=== PATIENT | male | born 1950 | race Caucasian/White ===

== ENCOUNTER 2018-10-27 10:12 | Inpatient (IN) | payer MEDICARE, BC, OTHER ==
[2018-10-27] MEDS ORDERED: BENZONATATE 100 MG CAPSULE PO ONE (10:29)
[2018-10-27] MEDS ORDERED: IPRATROPIUM/ALBUTEROL 0.5-2.5 MG/3 ML AMPUL NEB ONE (10:29)
--- NOTE | 2018-10-27 10:30 | ER Document Report ---
ED Medical Screen (RME) - General Chief Complaint: Breathing Difficulty Stated Complaint: COUGH, DIFFICULTY BREATHING Time Seen by Provider: 10/27/18 10:28 TRAVEL OUTSIDE OF THE [place] IN LAST 30 DAYS: No - HPI Patient complains to provider of: Shortness of breath with cough and chest tightness Notes: 10/27/18 10:29 Patient is a 68-year-old male presenting to the emergency room today complaining of shortness of breath with cough productive of a small amount of whitish colored phlegm, difficulty breathing and chest tightness, symptoms have been going on for the past few days and have occurred twice a year for the past 3 years RAPID MEDICAL EVALUATION DISCLOSURE I have seen this patient as part of a Rapid Medical Evaluation and, if applicable, placed any initially appropriate orders. The patient will be seen and fully evaluated, including a full history and physical exam, by a provider (in Main ED or Fast Track) when a room becomes available. - Related Data Allergies/Adverse Reactions: benzoin Allergy (Verified 10/27/18 10:18) Physical Exam - Vital signs Vitals: Temp Pulse Resp BP Pulse Ox 98.1 F 125 H 24 H 148/97 H 94 10/27/18 10:20 10/27/18 10:20 10/27/18 10:20 10/27/18 10:20 10/27/18 10:20 Course - Vital Signs Vital signs: Temp Pulse Resp BP Pulse Ox 98.1 F 125 H 24 H 148/97 H 94 10/27/18 10:20 10/27/18 10:20 10/27/18 10:20 10/27/18 10:20 10/27/18 10:20
--- NOTE | 2018-10-27 11:17 | RADIOLOGY REPORT (SQ) ---
EXAM DESCRIPTION: CHEST 2 VIEWS COMPLETED DATE/TIME: 10/27/2018 11:05 am REASON FOR STUDY: cough COMPARISON: None. EXAM PARAMETERS: NUMBER OF VIEWS: two views TECHNIQUE: Digital Frontal and Lateral radiographic views of the chest acquired. RADIATION DOSE: NA LIMITATIONS: none FINDINGS: LUNGS AND PLEURA: No opacities, masses or pneumothorax. No pleural effusion. MEDIASTINUM AND HILAR STRUCTURES: No masses or contour abnormalities. HEART AND VASCULAR STRUCTURES: Heart normal size. No evidence for failure. BONES: No acute findings. HARDWARE: None in the chest. OTHER: No other significant finding. IMPRESSION: NO ACUTE RADIOGRAPHIC FINDING IN THE CHEST. TECHNICAL DOCUMENTATION: JOB ID: [id number] [employer]- All Rights Reserved Reading location - IP/workstation name: [email or web address]
[2018-10-27] MEDS ORDERED: HYDROCODONE/ACETAMINOPHEN 5-325 MG TABLET PO ONE (11:57)
[2018-10-27] MEDS ORDERED: LIDOCAINE 1% INJ-PF (10 MG/ML) 30 ML SDV NEB ONE (11:57)
[2018-10-27 12:28] LABS: ABSOLUTE EOSINOPHILS # (AUTO) 0.1 10^3/uL (0.0-0.6); ABSOLUTE LYMPHOCYTES (AUTO) 1.1 10^3/uL (0.5-4.7); ABSOLUTE MONOCYTES (AUTO) 0.5 10^3/uL (0.1-1.4); ABSOLUTE NEUT (AUTO) 4.7 10^3/uL (1.7-8.2); BASOPHILS % (AUTO) 0.4 % (0-2); HEMATOCRIT 47.8 % (37.9-51.0); HEMOGLOBIN 16.5 g/dL (13.5-17.0); LYMPHOCYTES % (AUTO) 17.6 % (13-45); MEAN CORPUSCULAR HEMOGLOBIN 31.3 pg (27.0-33.4); MEAN CORPUSCULAR HGB CONC 34.6 g/dL (32.0-36.0); MEAN CORPUSCULAR VOLUME 90 fl (80-97); MONOCYTES % (AUTO) 8.2 % (3-13); PLATELET COUNT 223 10^3/uL (150-450); RED BLOOD COUNT 5.29 10^6/uL (4.35-5.55); SEGMENTED NEUTROPHILS % (AUTO) 72.8 % (42-78); TOTAL CELLS COUNTED % (AUTO) 100 %; WHITE BLOOD COUNT 6.5 10^3/uL (4.0-10.5)
[2018-10-27 12:47] LABS: ALANINE AMINOTRANSFERASE 25 U/L (21-72); ALBUMIN 4.3 g/dL (3.5-5.0); ALKALINE PHOSPHATASE 95 U/L (38-126); ANION GAP 9 (5-19); ASPARTATE AMINO TRANSFERASE 21 U/L (17-59); BILIRUBIN,DIRECT 0.3 mg/dL (0.0-0.4); BILIRUBIN,TOTAL 0.7 mg/dL (0.2-1.3); BLOOD UREA NITROGEN 18 mg/dL (7-20); CALCIUM 9.3 mg/dL (8.4-10.2); CARBON DIOXIDE 28 mmol/L (22-30); CHLORIDE 101 mmol/L (98-107); GLUCOSE 97 mg/dL (75-110); SODIUM 137.8 mmol/L (137-145)
[2018-10-27 12:57] LABS: NT PRO BNP 87 pg/mL (5-900)
[2018-10-27 12:58] LABS: TROPONIN I < 0.012 ng/mL
[2018-10-27] MEDS ORDERED: ALBUTEROL SULFATE 0.083% NEB 2.5 MG/3 ML AMPUL NEB ONE (13:46)
--- NOTE | 2018-10-27 15:51 | ER Document Report ---
Entered by LAUREL RODRIGUEZ SCRIBE 10/27/18 1156 Acting as scribe for:JAIME ANDRADE MD ED Respiratory Problem - General Chief Complaint: Breathing Difficulty Stated Complaint: COUGH, DIFFICULTY BREATHING Time Seen by Provider: 10/27/18 10:28 Primary Care Provider: SUSAN MEJIA FNP-C [Primary Care Provider] - Follow up as needed Mode of Arrival: Ambulatory Information source: Patient Notes: 68-year-old male who is on no home medications presents to the emergency department today with complaints of a cough with associated shortness of breath. Patient states he has had a cough for x2-3 weeks. Patient states for the first x2 weeks or so the cough seemed to "be coming from his throat" however over the last x5-6 days the cough seemed to have "settled in his chest". Patient states he went to an urgent care and he was prescribed an albuterol inhaler, prednisone, and Tessalon Perles. Patient states he has had minimal to no relief with these medications. Patient states he has never smoked and has no pulmonary history to his knowledge. Patient denies fevers. The patient was put on prednisone 20 mg twice daily on 10/24/2018. He states he cannot take higher doses because it tends to cause a steroid psychosis and jitteriness. TRAVEL OUTSIDE OF THE [place] IN LAST 30 DAYS: No - Related Data Allergies/Adverse Reactions: benzoin Allergy (Verified 10/27/18 10:18) Past Medical History - General Information source: Patient - Social History Smoking Status: Never Smoker Cigarette use (# per day): No Chew tobacco use (# tins/day): No Smoking Education Provided: No Frequency of alcohol use: None Drug Abuse: None Lives with: Spouse/Significant other Family History: Reviewed & Not Pertinent Patient has suicidal ideation: No Patient has homicidal ideation: No - Medical History Medical History: Other - Polymyalgia rheumatica Pulmonary Medical History: Reports: Hx Pneumonia Past Surgical History: Reports: Hx Appendectomy, Hx Inguinal Hernia - Left inguinal hernia repair x2, mesh placed on second repair., Hx Urinary Tract Surgery - TURP Review of Systems - Review of Systems Constitutional: denies: Fever EENT: No symptoms reported Cardiovascular: No symptoms reported Respiratory: See HPI, Cough, Short of breath Gastrointestinal: No symptoms reported Genitourinary: No symptoms reported Male Genitourinary: No symptoms reported Musculoskeletal: No symptoms reported Skin: No symptoms reported Hematologic/Lymphatic: No symptoms reported Neurological/Psychological: No symptoms reported -: Yes All other systems reviewed and negative Physical Exam - Vital signs Vitals: Temp Pulse Resp BP Pulse Ox 98.1 F 125 H 24 H 148/97 H 94 10/27/18 10:20 10/27/18 10:20 10/27/18 10:20 10/27/18 10:20 10/27/18 10:20 - Notes Notes: Physical Exam: General: Alert, appears mildly short of breath. HEENT: Normocephalic. Atraumatic. PERRL. Extraocular movements intact. Ryan pharynx clear. Neck: Supple. Non-tender. Respiratory: Mild respiratory distress. Inspiratory and expiratory wheezing bilaterally, rhonchorous bilaterally, persistent cough. Cardiovascular: Tachycardic, regular rhythm Abdominal: Normal Inspection. Non-tender. No distension. Normal Bowel Sounds. Back: Non-tender. No deformity or step off. Extremities: Moves all four extremities. Upper extremities: Normal inspection. Normal ROM. Lower extremities: Normal inspection. No edema. Normal ROM. Neurological: Normal cognition. AAOx4. Normal speech. Psychological: Normal affect. Normal Mood. Skin: Warm. Dry. Normal color. Course - Re-evaluation Re-evalutation: 10/27/18 15:25 After breathing treatments, patient states he does feel much better. His oxygen was turned off and his O2 sats dropped to 88% on room air and his heart rate runs about 105. - Vital Signs Vital signs: Temp Pulse Resp BP Pulse Ox 98.1 F 125 H 18 129/80 H 96 10/27/18 10:20 10/27/18 10:20 10/27/18 14:01 10/27/18 14:00 10/27/18 14:01 - Laboratory Result Diagrams: 10/27/18 12:00 10/27/18 12:00 - Diagnostic Test Radiology reviewed: Image reviewed, Reports reviewed - Chest x-ray does not show any infiltrate or other acute abnormality. - EKG Interpretation by [facility] EKG shows normal: Sinus rhythm, [place], Intervals, QRS Complexes, ST-T Waves Rate: Tachycardia - 119 - Consults Dr. Hughes Time consulted: 15:25 Consulted provider: will come to ER Discharge - Discharge Clinical Impression: Acute bronchitis with bronchospasm, Hypoxemia, Tachycardia Condition: Stable Disposition: ADMITTED INPATIENT Admitting Provider: Hospitalist Unit Admitted: Medical Floor Additional Instructions: Bronchitis with Bronchospasm (Wheezing) You have bronchitis with bronchospasm (wheezing). Sometimes people develop wheezing with a chest cold. This occurs either because of an underlying tendency toward asthma or because the virus itself irritates the bronchial tubes. This irritation causes cough, shortness of breath, and wheezing. Emergency treatment of bronchospasm may include adrenaline shots or bronchodilator aerosol. You may feel lightheaded and have a rapid pulse for an hour or two. Rest and get plenty of fluids. At home, we'll treat you with a bronchodilator inhaler. Corticosteroids may be required for some patients. Until you recover, avoid chemical fumes, dusts, pollens, and exercising in very cold or dry air. If you smoke, stop now! Most cases of bronchitis get better without antibiotics. We prescribe antibiotics when we believe bacteria are damaging your airways, or if there's high risk the bronchitis will worsen into pneumonia. Increase your fluid intake. A cool mist humidifier may make your lungs more comfortable. An expectorant (cough medicine that loosens phlegm) can help. Repeated episodes of bronchitis and bronchospasm may result in lung damage -- for example, chronic bronchitis, recurrent pneumonias, or emphysema. If you develop a fever, increased wheezing, chest pain, or severe shortness of breath, you should contact the doctor immediately. Referrals: SUSAN MEJIA, MAHAMEDC [Primary Care Provider] - Follow up as needed I personally performed the services described in the documentation, reviewed and edited the documentation which was dictated to the scribe in my presence, and it accurately records my words and actions.
--- NOTE | 2018-10-27 16:05 | PDOC H&P ---
History of Present Illness Admission Date/PCP: MAHAMED NUNEZC History of Present Illness: ZELALEM BLISS is a 68 year old male patient with no significant medical history and is not on any medication presented with chief complaint of cough and shortness of breath. Patient reports he has been in his usual baseline state of health up until 3 weeks when he started to have cough productive of whitish sputum associated with shortness of breath and wheezing. For the above-mentioned complaints patient visited urgent care where he was given albuterol inhaler, prednisone and Tessalon Perles to no avail. His blood work and chest x-ray are unremarkable. 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 He denies any fever, chills, chest pain, palpitation, diaphoresis, nausea, vomiting, abdominal pain, diarrhea or urinary complaints. Past Medical History Pulmonary Medical History: Reports: Pneumonia Past Surgical History Past Surgical History: Reports: Appendectomy Social History Lives with: Spouse/Significant other Smoking Status: Never Smoker - Advance Directive Resuscitation Status: Full Code Family History Family History: Reviewed & Not Pertinent Parental Family History Reviewed: Yes Children Family History Reviewed: Yes Sibling(s) Family History Reviewed.: Yes Medication/Allergy Allergies/Adverse Reactions: benzoin Allergy (Verified 10/27/18 10:18) Review of Systems Constitutional: ABSENT: chills, fever(s), headache(s), weight gain, weight loss Eyes: ABSENT: visual disturbances Ears: ABSENT: hearing changes Cardiovascular: ABSENT: chest pain, dyspnea on exertion, edema, orthropnea, palpitations Respiratory: PRESENT: cough, dyspnea Gastrointestinal: ABSENT: abdominal pain, constipation, diarrhea, hematemesis, hematochezia, nausea, vomiting Genitourinary: ABSENT: dysuria, hematuria Musculoskeletal: ABSENT: joint swelling Integumentary: ABSENT: rash, wounds Neurological: ABSENT: abnormal gait, abnormal speech, confusion, dizziness, focal weakness, syncope Psychiatric: ABSENT: anxiety, depression, homidical ideation, suicidal ideation Endocrine: ABSENT: cold intolerance, heat intolerance, polydipsia, polyuria Hematologic/Lymphatic: ABSENT: easy bleeding, easy bruising Physical Exam Vital Signs: Temp Pulse Resp BP Pulse Ox 98.1 F 125 H 18 129/80 H 96 10/27/18 10:20 10/27/18 10:20 10/27/18 14:01 10/27/18 14:00 10/27/18 14:01 Intake & Output 10/26/18 10/27/18 10/28/18 06:59 06:59 06:59 Weight 115.666 kg General appearance: PRESENT: mild distress, well-nourished Head exam: PRESENT: atraumatic, normocephalic Eye exam: PRESENT: conjunctiva pink, EOMI, PERRLA. ABSENT: scleral icterus Ear exam: PRESENT: normal external ear exam Mouth exam: PRESENT: moist, tongue midline Neck exam: ABSENT: carotid bruit, JVD, lymphadenopathy, thyromegaly Respiratory exam: PRESENT: wheezes Cardiovascular exam: PRESENT: RRR. ABSENT: diastolic murmur, rubs, systolic murmur Pulses: PRESENT: normal dorsalis pedis pul Vascular exam: PRESENT: normal capillary refill GI/Abdominal exam: PRESENT: normal bowel sounds, soft. ABSENT: distended, guarding, mass, organolmegaly, rebound, tenderness Rectal exam: PRESENT: deferred Extremities exam: PRESENT: full ROM. ABSENT: calf tenderness, clubbing, pedal edema Neurological exam: PRESENT: alert, awake, oriented to person, oriented to place, oriented to time, oriented to situation, CN II-XII grossly intact. ABSENT: motor sensory deficit Psychiatric exam: PRESENT: appropriate affect, normal mood. ABSENT: homicidal ideation, suicidal ideation Skin exam: PRESENT: dry, intact, warm. ABSENT: cyanosis, rash Results Laboratory Results: 10/27/18 12:00 10/27/18 12:00 10/27/18 10/27/18 10/27/18 10:54 10:54 12:00 WBC Cancelled RBC Cancelled Hgb Cancelled Hct Cancelled MCV Cancelled MCH Cancelled MCHC Cancelled RDW Cancelled Plt Count Cancelled Seg Neutrophils % Cancelled Lymphocytes % Cancelled Monocytes % Cancelled Eosinophils % Cancelled Basophils % Cancelled Absolute Neutrophils Cancelled Absolute Lymphocytes Cancelled Absolute Monocytes Cancelled Absolute Eosinophils Cancelled Absolute Basophils Cancelled Sodium Cancelled 137.8 Potassium Cancelled 4.0 Chloride Cancelled 101 Carbon Dioxide Cancelled 28 Anion Gap Cancelled 9 BUN Cancelled 18 Creatinine Cancelled 1.05 Est GFR ( Amer) Cancelled > 60 Est GFR (Non-Af Amer) Cancelled > 60 Glucose Cancelled 97 Calcium Cancelled 9.3 Total Bilirubin Cancelled 0.7 AST Cancelled 21 ALT Cancelled 25 Alkaline Phosphatase Cancelled 95 Total Protein Cancelled 7.0 Albumin Cancelled 4.3 10/27/18 12:00 WBC 6.5 RBC 5.29 Hgb 16.5 Hct 47.8 MCV 90 MCH 31.3 MCHC 34.6 RDW 14.0 Plt Count 223 Seg Neutrophils % 72.8 Lymphocytes % 17.6 Monocytes % 8.2 Eosinophils % 1.0 Basophils % 0.4 Absolute Neutrophils 4.7 Absolute Lymphocytes 1.1 Absolute Monocytes 0.5 Absolute Eosinophils 0.1 Absolute Basophils 0.0 Sodium Potassium Chloride Carbon Dioxide Anion Gap BUN Creatinine Est GFR ( Amer) Est GFR (Non-Af Amer) Glucose Calcium Total Bilirubin AST ALT Alkaline Phosphatase Total Protein Albumin 10/27/18 10/27/18 10:54 12:00 Troponin I Cancelled < 0.012 NT-Pro-B Natriuret Pep Cancelled 87 Impressions: Chest X-Ray 10/27/18 10:28 IMPRESSION: NO ACUTE RADIOGRAPHIC FINDING IN THE CHEST. Assessment & Plan - Diagnosis (1) Acute hypoxemic respiratory failure Is this a current diagnosis for this admission?: Yes Plan: We will keep him on supplemental oxygen (2) Acute bronchitis with bronchospasm Is this a current diagnosis for this admission?: Yes Plan: I started him on supplemental oxygen, bronchodilator, Solu-Medrol and Levaquin. - Inpatient Certification Medical Necessity: Need Close Monitoring Due to Risk of Patient Decompensation, Need for IV Antibiotics Post Hospital Care: Other - Failed outpatient treatment
[2018-10-27 16:28] LABS: ARTERIAL BLOOD BASE EXCESS 1.6 mmol/L; ARTERIAL BLOOD H2CO3 1.22 mmol/L (1.05-1.35); ARTERIAL BLOOD HCO3 26.1 mmol/L (20-24); ARTERIAL BLOOD O2 SATURATION 91.1 % (94-98); ARTERIAL BLOOD PCO2 40.5 mmHg (35-45); ARTERIAL BLOOD PH 7.43 (7.35-7.45); ARTERIAL BLOOD PO2 58.7 mmHg (80-100); ARTERIAL BLOOD TOTAL CO2 27.3 mmol/L (23-27)
[2018-10-27 16:29] LABS: ARTERIAL BLOOD FIO2 ROOMAIR
[2018-10-27] MEDS: LEVOFLOXACIN 750 MG/D5W RTU 750 MG/150 ML RTUPB IV SCH (18:47)
[2018-10-27] MEDS: ENOXAPARIN SODIUM INJ 40 MG/0.4 ML DISP.SYRIN SUBCUT SCH (18:56)
[2018-10-27] MEDS: IPRATROPIUM/ALBUTEROL 0.5-2.5 MG/3 ML AMPUL NEB SCH (20:07)
[2018-10-27] MEDS: METHYLPREDNISOLONE INJ 40 MG/1 ML SDV IV SCH (22:31)
[2018-10-27] MEDS: GUAIFENESIN 600 MG TABLET.SA PO SCH (22:32)
--- NOTE | 2018-10-28 00:09 | EKG REPORT ---
SEVERITY:- OTHERWISE NORMAL ECG - SINUS TACHYCARDIA : Confirmed by: Kely Nye 28-Oct-2018 00:08:19
[2018-10-28] MEDS: IPRATROPIUM/ALBUTEROL 0.5-2.5 MG/3 ML AMPUL NEB SCH ×4 (01:42→19:57)
[2018-10-28] MEDS: METHYLPREDNISOLONE INJ 40 MG/1 ML SDV IV SCH ×2 (06:10→13:52)
[2018-10-28 07:04] LABS: CHOLESTEROL 201.76 mg/dL (0-200); TRIGLYCERIDES 85 mg/dL (<150)
[2018-10-28 07:15] LABS: DIRECT LDL 132 mg/dL (<100)
[2018-10-28] MEDS: GUAIFENESIN 600 MG TABLET.SA PO SCH ×2 (09:41→21:00)
[2018-10-28] MEDS: ENOXAPARIN SODIUM INJ 40 MG/0.4 ML DISP.SYRIN SUBCUT SCH (09:42)
[2018-10-28] MEDS: GUAIFENESIN SYRP 200 MG/10 ML UDC PO PRN (14:27)
[2018-10-28] MEDS: LEVOFLOXACIN 750 MG/D5W RTU 750 MG/150 ML RTUPB IV SCH (17:08)
--- NOTE | 2018-10-28 17:33 | PDOC PROGRESS REPORT ---
Subjective Progress Note for:: 10/28/18 Subjective:: ZELALEM BLISS is a 68 year old male patient with no significant medical history and is not on any medication presented with chief complaint of cough and shortness of breath. Patient reports he has been in his usual baseline state of health up until 3 weeks when he started to have cough productive of whitish sputum associated with shortness of breath and wheezing. For the above-mentioned complaints patient visited urgent care where he was given albuterol inhaler, prednisone and Tessalon Perles to no avail. His blood work and chest x-ray are unremarkable. 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 He denies any fever, chills, chest pain, palpitation, diaphoresis, nausea, vomiting, abdominal pain, diarrhea or urinary complaints. 10/28/18: Patient states he is feeling better. However he still gets extreme shortness of breath with minimal exertion. He is to have a nonproductive harsh cough. Has been afebrile overnight. Reason For Visit: ACUTE HYPOXEMIC RESPIRATORY FAILURE Physical Exam Vital Signs: Temp Pulse Resp BP Pulse Ox 98.2 F 119 H 19 121/73 94 10/28/18 15:34 10/28/18 15:34 10/28/18 15:34 10/28/18 15:34 10/28/18 16:00 Intake & Output 10/27/18 10/28/18 10/29/18 06:59 06:59 06:59 Intake Total 150 266 Balance 150 266 Weight 115.5 kg General appearance: PRESENT: no acute distress, cooperative Eye exam: ABSENT: scleral icterus Ear exam: PRESENT: TM's normal bilaterally Throat exam: ABSENT: tonsillogmegaly Neck exam: PRESENT: full ROM. ABSENT: JVD, lymphadenopathy, tenderness, t hyromegaly, tracheal deviation Respiratory exam: PRESENT: accessory muscle use, wheezes Cardiovascular exam: PRESENT: RRR. ABSENT: gallop, rubs GI/Abdominal exam: PRESENT: normal bowel sounds, soft. ABSENT: tenderness Musculoskeletal exam: PRESENT: full ROM. ABSENT: tenderness Neurological exam: PRESENT: alert, oriented to person, oriented to place, oriented to time, oriented to situation Skin exam: PRESENT: dry, warm Results Laboratory Results: 10/27/18 12:00 10/27/18 12:00 10/28/18 06:11 Triglycerides 85 Cholesterol 201.76 H LDL Cholesterol Direct 132 H VLDL Cholesterol 17.0 HDL Cholesterol 43 10/27/18 10/27/18 10:54 12:00 Troponin I Cancelled < 0.012 NT-Pro-B Natriuret Pep Cancelled 87 Impressions: Chest X-Ray 10/27/18 10:28 IMPRESSION: NO ACUTE RADIOGRAPHIC FINDING IN THE CHEST. Assessment and Plan - Diagnosis (1) Acute bronchitis with bronchospasm Is this a current diagnosis for this admission?: Yes Plan: 10/28/18 17:30 States he has been getting this approximately once a year. Last time was November of last year. Denies any current fevers or chills. Slowly getting better. Co ntinue antibiotics prednisone nebulizer treatments. Consider getting a CT of his chest if not significant improvement by tomorrow. (2) Acute hypoxemic respiratory failure Is this a current diagnosis for this admission?: Yes Plan: 10/28/18 17:31 Still requiring oxygen. Still with extreme shortness of breath on minimal exertion. Oxygen sats overall are improving now. One bottle of blood cultures is positive for gram-positive cocci and gram-negative rods. Feel this may be a contaminant given the fact that there are 2 different bacteria and the patient has no definite cause for why he would have a bacteremia. Continue to wait for the results of the blood cultures prior to starting any further antibiotics. - Time Time Spent with patient: 25-34 minutes Medications reviewed and adjusted accordingly: Yes Anticipated discharge: Home
[2018-10-29] MEDS: IPRATROPIUM/ALBUTEROL 0.5-2.5 MG/3 ML AMPUL NEB SCH ×5 (01:59→20:11)
[2018-10-29] MEDS: GUAIFENESIN SYRP 200 MG/10 ML UDC PO PRN ×2 (04:01→12:50)
[2018-10-29 07:18] LABS: ABSOLUTE LYMPHOCYTES (AUTO) 0.9 10^3/uL (0.5-4.7); ABSOLUTE MONOCYTES (AUTO) 0.7 10^3/uL (0.1-1.4); ABSOLUTE NEUT (AUTO) 5.8 10^3/uL (1.7-8.2); BASOPHILS % (AUTO) 0.1 % (0-2); HEMATOCRIT 42.2 % (37.9-51.0); LYMPHOCYTES % (AUTO) 12.6 % (13-45); MEAN CORPUSCULAR VOLUME 91 fl (80-97); MONOCYTES % (AUTO) 9.9 % (3-13); PLATELET COUNT 206 10^3/uL (150-450); RED BLOOD COUNT 4.64 10^6/uL (4.35-5.55); RED CELL DISTRIBUTION WIDTH 13.7 % (11.5-14.0); SEGMENTED NEUTROPHILS % (AUTO) 77.4 % (42-78); TOTAL CELLS COUNTED % (AUTO) 100 %; WHITE BLOOD COUNT 7.5 10^3/uL (4.0-10.5)
[2018-10-29 07:45] LABS: ALANINE AMINOTRANSFERASE 35 U/L (21-72); ALBUMIN 3.6 g/dL (3.5-5.0); ALKALINE PHOSPHATASE 78 U/L (38-126); ANION GAP 9 (5-19); ASPARTATE AMINO TRANSFERASE 23 U/L (17-59); BILIRUBIN,DIRECT 0.2 mg/dL (0.0-0.4); BILIRUBIN,TOTAL 0.4 mg/dL (0.2-1.3); BLOOD UREA NITROGEN 24 mg/dL (7-20); CALCIUM 9.1 mg/dL (8.4-10.2); CARBON DIOXIDE 28 mmol/L (22-30); CHLORIDE 102 mmol/L (98-107); GLUCOSE 127 mg/dL (75-110); POTASSIUM 4.2 mmol/L (3.6-5.0); SODIUM 138.7 mmol/L (137-145); TOTAL PROTEIN 6.4 g/dL (6.3-8.2)
[2018-10-29 08:46] LABS: HEMOGLOBIN 14.4 g/dL (13.5-17.0)
[2018-10-29] MEDS: PREDNISONE 20 MG TABLET PO SCH (09:40)
[2018-10-29] MEDS: GUAIFENESIN 600 MG TABLET.SA PO SCH ×2 (09:40→21:00)
[2018-10-29] MEDS: ENOXAPARIN SODIUM INJ 40 MG/0.4 ML DISP.SYRIN SUBCUT SCH (09:45)
--- NOTE | 2018-10-29 11:43 | PDOC PROGRESS REPORT ---
Subjective Progress Note for:: 10/29/18 Subjective:: ZELALEM BLISS is a 68 year old male patient with no significant medical history and is not on any medication presented with chief complaint of cough and shortness of breath. Patient reports he has been in his usual baseline state of health up until 3 weeks when he started to have cough productive of whitish sputum associated with shortness of breath and wheezing. For the above-mentioned complaints patient visited urgent care where he was given albuterol inhaler, prednisone and Tessalon Perles to no avail. His blood work and chest x-ray are unremarkable. 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 He denies any fever, chills, chest pain, palpitation, diaphoresis, nausea, vomiting, abdominal pain, diarrhea or urinary complaints. 10/28/18: Patient states he is feeling better. However he still gets extreme shortness of breath with minimal exertion. He is to have a nonproductive harsh cough. Has been afebrile overnight. 10/29/18: Patient did not rest well last night. [place] that he only got about 2 hours of sleep. Has been having worsening shortness of breath this morning. Still with a very strong nonproductive cough. Reason For Visit: ACUTE HYPOXEMIC RESPIRATORY FAILURE Physical Exam Vital Signs: Temp Pulse Resp BP Pulse Ox 98.3 F 98 18 139/72 H 90 L 10/29/18 07:45 10/29/18 09:13 10/29/18 09:13 10/29/18 07:45 10/29/18 09:13 Intake & Output 10/28/18 10/29/18 10/30/18 06:59 06:59 06:59 Intake Total 150 682 Balance 150 682 Weight 115.5 kg 114 kg General appearance: PRESENT: cooperative, mild distress Mouth exam: PRESENT: moist, neck supple Neck exam: ABSENT: full ROM, JVD, lymphadenopathy, tenderness, thyromegaly, tracheal deviation Respiratory exam: PRESENT: accessory muscle use, crackles Cardiovascular exam: PRESENT: RRR. ABSENT: gallop, rubs GI/Abdominal exam: PRESENT: normal bowel sounds, soft. ABSENT: ascites, tenderness Extremities exam: ABSENT: pedal edema, tenderness Neurological exam: PRESENT: alert, oriented to person, oriented to place, oriented to time, oriented to situation Psychiatric exam: ABSENT: agitated, anxious Skin exam: PRESENT: dry, normal color, warm Results Laboratory Results: 10/29/18 06:19 10/29/18 06:19 10/29/18 10/29/18 06:19 06:19 WBC 7.5 RBC 4.64 Hgb 14.4 D Hct 42.2 MCV 91 MCH 31.0 MCHC 34.0 RDW 13.7 Plt Count 206 Seg Neutrophils % 77.4 Lymphocytes % 12.6 L Monocytes % 9.9 Eosinophils % 0.0 Basophils % 0.1 Absolute Neutrophils 5.8 Absolute Lymphocytes 0.9 Absolute Monocytes 0.7 Absolute Eosinophils 0.0 Absolute Basophils 0.0 Sodium 138.7 Potassium 4.2 Chloride 102 Carbon Dioxide 28 Anion Gap 9 BUN 24 H Creatinine 0.91 Est GFR ( Amer) > 60 Est GFR (Non-Af Amer) > 60 Glucose 127 H Calcium 9.1 Total Bilirubin 0.4 AST 23 ALT 35 Alkaline Phosphatase 78 Total Protein 6.4 Albumin 3.6 10/27/18 10/27/18 10:54 12:00 Troponin I Cancelled < 0.012 NT-Pro-B Natriuret Pep Cancelled 87 Impressions: Chest X-Ray 10/27/18 10:28 IMPRESSION: NO ACUTE RADIOGRAPHIC FINDING IN THE CHEST. Assessment and Plan - Diagnosis (1) Acute bronchitis with bronchospasm Is this a current diagnosis for this admission?: Yes Plan: 10/28/18 17:30 States he has been getting this approximately once a year. Last time was November of last year. Denies any current fevers or chills. Slowly getting better. Continue antibiotics prednisone nebulizer treatments. Ordered CT of his chest (2) Acute hypoxemic respiratory failure Is this a current diagnosis for this admission?: Yes Plan: 10/28/18 17:31 Still requiring oxygen. Still with extreme shortness of breath on minimal exertion. Oxygen sats overall are improving now. One bottle of blood cultures is positive for gram-positive cocci and gram-positive rods. Feel this may be a contaminant given the fact that there are 2 different bacteria and the patient has no definite cause for why he would have a bacteremia. Continue to wait for the results of the blood cultures prior to starting any further antibiotics. - Time Time Spent with patient: 35 or more minutes Medications reviewed and adjusted accordingly: Yes Anticipated discharge: Home
[2018-10-29] MEDS ORDERED: AZITHROMYCIN INJ 500 MG VIAL IV SCH (13:00)
[2018-10-29] MEDS ORDERED: KETOROLAC TROMETHAMINE INJ/PF 30 MG/1 ML SDV IV ONE (13:00)
--- NOTE | 2018-10-29 13:54 | RADIOLOGY REPORT (SQ) ---
EXAM DESCRIPTION: CT CHEST WITH COMPLETED DATE/TIME: 10/29/2018 1:37 pm REASON FOR STUDY: Worsening shortness of breath COMPARISON: Radiographs from 10/27/2018. TECHNIQUE: CT scan of the chest performed using helical scanning technique with dynamic intravenous contrast injection. Images reviewed with lung, soft tissue and bone windows. Reconstructed coronal and sagittal MPR and MIP images reviewed. All images stored on PACS. All CT scanners at this facility use dose modulation, iterative reconstruction, and/or weight based d osing when appropriate to reduce radiation dose to as low as reasonably achievable (ALARA). [facility]: Dose Right [facility]: CareDose [facility]: Dose Right [facility]: Teradose 4D [facility]: [employer] CONTRAST TYPE AND DOSE: contrast/concentration: Isovue 350.00 mg/ml; Total Contrast Delivered: 86.7 ml; Total Saline Delivered: 75.0 ml RENAL FUNCTION: Creatinine 0.9 RADIATION DOSE: CT Rad equipment meets quality standard of care and radiation dose reduction techniq ues were employed. CTDIvol: 15.7 mGy. DLP: 618 mGy-cm. . LIMITATIONS: Mild motion artifact. Not significantly limiting, however. FINDINGS: LUNGS AND PLEURA: No opacities, nodules, masses. No pneumothorax. No effusions. HILAR AND MEDIASTINAL STRUCTURES: Subcentimeter lymph nodes. No jesus adenopathy. No mass or esopha geal distention. HEART AND VASCULAR STRUCTURES: No aneurysm or dissection. No central pulmonary emboli. No pericardi al effusion. HARDWARE: None in the chest. UPPER ABDOMEN: No significant findings. Limited exam. THYROID AND OTHER SOFT TISSUES: No masses. No adenopathy. BONES: Mild thoracic spondylosis at multiple levels. No fracture or worrisome bone lesion. OTHER: No other significant finding. IMPRESSION: 1. No acute or suspicious thoracic abnormality. Lungs are clear. No vascular or mediastinal abnorma lity detected. TECHNICAL DOCUMENTATION: JOB ID: [id number] Quality ID # [id number]: Final reports with documentation of one or more dose reduction techniques (e.g., Au tomated exposure control, adjustment of the mA and/or kV according to patient size, use of iterative reconstruction technique) 2010 [employer] All Rights Reserved Reading location - IP/workstation name: [email or web address]
[2018-10-29] MEDS: AZITHROMYCIN 500 MG in DEXTROSE 5%-WATER 250 ML IV SCH (15:00)
[2018-10-29] MEDS ORDERED: HYDROCODONE/ACETAMINOPHEN 10-325 MG TABLET PO PRN (15:06)
--- NOTE | 2018-10-29 15:36 | PDOC CONSULTATION ---
Consultation Consult Date: 10/29/18 Attending physician:: OSCAR DVAIS Consult reason:: persistant paroxsymal cough History of Present Illness Admission Date/PCP: 10/27/18 16:12 DOLLY NUNEZ History of Present Illness: ZELALEM BLISS is a 68 year old male, signs of frequent persistent nonproductive cough worse over the last 3 weeks no hemoptysis PPD negative dates unknown he denies shortness of breath at rest but does admit to some dips and exertion he denies hemoptysis PPD is negative dates unknown no history chronic lung disease as a child or adolescent he admits to exposure to passive smoke as a child he. 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 He has had paroxysms of cough in the past she is moved to the local area pattern seems to have changed he is to cough all day of sleep all now now he coughs all night and sleeps all day he used to live in [place] and cough all day and he lives in [place] coughing all night. He complains of left-sided pain diaphragmatic area. Is 1 dog shorthaired lives inside. He is travel to many places around [facility] all local in our [place], [place] as well as [facility]. He admits to snoring and has a diagnosis of MARLENY Past Medical History Pulmonary Medical History: Reports: Pneumonia, Sleep Apnea - ? EENT Medical History: Reports: None Neurological Medical History: Reports: None Endocrine Medical History: Reports: None Renal/ Medical History: Reports: None Malignancy Medical History: Reports: None GI Medical History: Denies: Crohn's Disease, Diverticulitis, Hepatitis, Ulcerative Colitis Musculoskeltal Medical History: Denies: Fibromyalgia, Gout Psychiatric Medical History: Denies: Alcohol Dependency, Substance Abuse, Tobacco Dependency Traumatic Medical History: Denies: Traumatic Brain Injury Hematology: Denies: Sickle Cell Disease Infectious Medical History: Denies: HIV Past Surgical History Past Surgical History: Reports: Appendectomy Social History Lives with: Spouse/Significant other Smoking Status: Never Smoker Frequency of Alcohol Use: Rare Hx Recreational Drug Use: No Hx Prescription Drug Abuse: No Have you been exposed to any sick contacts recently?: No Have you had any recent respiratory illnesses?: No - Advance Directive Resuscitation Status: Full Code Family History Parental Family History Reviewed: Yes Children Family History Reviewed: Yes Sibling(s) Family History Reviewed.: Yes Medication/Allergy Home Medications: No Home Medications 10/27/18 Allergies/Adverse Reactions: benzoin Allergy (Verified 10/27/18 10:18) Review of Systems Constitutional: ABSENT: headache(s), night sweats Eyes: ABSENT: visual disturbances Ears: ABSENT: hearing changes Nose, Mouth, and Throat: ABSENT: sore throat Cardiovascular: ABSENT: edema, orthropnea, palpitations Gastrointestinal: ABSENT: abdominal pain, bloating, coffee ground emesis, dysphagia, hematemesis, hematochezia Genitourinary: ABSENT: dysuria, hematuria Integumentary: ABSENT: pruritus, rash Neurological: ABSENT: abnormal gait, abnormal movements, abnormal speech, confusion, frequent falls, lack of coordination, memory loss, numbness Psychiatric: ABSENT: hallucinations, homidical ideation, suicidal ideation Endocrine: ABSENT: cold intolerance, heat intolerance, polydipsia, polyphagia Hematologic/Lymphatic: ABSENT: easy bruising, lymphadenopathy Allergic/Immunologic: ABSENT: seasonal rhinorrhea Physical Exam Vital Signs: Temp Pulse Resp BP Pulse Ox 98.3 F 98 16 139/72 H 92 10/29/18 07:45 10/29/18 13:58 10/29/18 13:58 10/29/18 07:45 10/29/18 13:58 Intake & Output 10/28/18 10/29/18 10/30/18 06:59 06:59 06:59 Intake Total 150 682 Balance 150 682 Weight 115.5 kg 114 kg General appearance: PRESENT: no acute distress, cooperative, disheveled, obese Head exam: PRESENT: atraumatic, normocephalic Eye exam: PRESENT: conjunctiva pale, EOMI. ABSENT: nystagmus, periorbital swelling, scleral icterus Mouth exam: PRESENT: dry mucosa, neck supple, tongue midline Teeth exam: PRESENT: edentulous Neck exam: ABSENT: carotid bruit, full ROM, JVD, lymphadenopathy, meningismus, tenderness, thyromegaly, tracheal deviation, tracheostomy, other Respiratory exam: PRESENT: decreased breath sounds, prolonged expiratory phas, retraction, rhonchi, unlabored. ABSENT: rales, stridor Cardiovascular exam: PRESENT: RRR, +S1, +S2 Pulses: PRESENT: normal radial pulses GI/Abdominal exam: PRESENT: soft Extremities exam: ABSENT: calf tenderness, clubbing, joint swelling, pedal edema Musculoskeletal exam: ABSENT: deformity, dislocation Neurological exam: PRESENT: alert, awake Psychiatric exam: PRESENT: appropriate affect Skin exam: PRESENT: dry, warm Results Laboratory Results: 10/29/18 06:19 10/29/18 06:19 10/29/18 10/29/18 06:19 06:19 WBC 7.5 RBC 4.64 Hgb 14.4 D Hct 42.2 MCV 91 MCH 31.0 MCHC 34.0 RDW 13.7 Plt Count 206 Seg Neutrophils % 77.4 Lymphocytes % 12.6 L Monocytes % 9.9 Eosinophils % 0.0 Basophils % 0.1 Absolute Neutrophils 5.8 Absolute Lymphocytes 0.9 Absolute Monocytes 0.7 Absolute Eosinophils 0.0 Absolute Basophils 0.0 Sodium 138.7 Potassium 4.2 Chloride 102 Carbon Dioxide 28 Anion Gap 9 BUN 24 H Creatinine 0.91 Est GFR ( Amer) > 60 Est GFR (Non-Af Amer) > 60 Glucose 127 H Calcium 9.1 Total Bilirubin 0.4 AST 23 ALT 35 Alkaline Phosphatase 78 Total Protein 6.4 Albumin 3.6 10/27/18 10/27/18 10:54 12:00 Troponin I Cancelled < 0.012 NT-Pro-B Natriuret Pep Cancelled 87 Impressions: Chest X-Ray 10/27/18 10:28 IMPRESSION: NO ACUTE RADIOGRAPHIC FINDING IN THE CHEST. Chest CT 10/29/18 00:00 IMPRESSION: 1. No acute or suspicious thoracic abnormality. Lungs are clear. No vascular or mediastinal abnormality detected. Assessment & Plan - Diagnosis (1) Cough present for greater than 3 weeks Is this a current diagnosis for this admission?: Yes Plan: Chronic sinusitis, GERD, Bordetella pertussis or a combination of any of these (2) Hypoxemia Is this a current diagnosis for this admission?: Yes Plan: Labs- All tests 24 hr 10/27/18 16:00 ABG pH 7.43 ABG pCO2 40.5 ABG pO2 58.7 L FiO2 ROOMAIR
--- NOTE | 2018-10-29 15:53 | ADVANCED CARE ---
- Diagnosis (1) Acute bronchitis with bronchospasm Diagnosis Current: Yes (2) Acute hypoxemic respiratory failure Diagnosis Current: Yes Attendance: The patient and His Resuscitation Status: Full Code Discussion: Discussed his goals of care. Should he worsen, how would he feel regarding intubation and ventillator management. He is agreeable with ventillator management but would only like to remain on a ventillator if he was to have a quality of life after. He does not desire to have a feeding tube placed. He is acceptable with an initial attempt at CPR/ACLS Care Planning Goals: To be made comfortable and to prolong life Document(s) Completed: discussed that he and his need to complete a living will and/or MOLST Form Time Spent: 30 minutes
[2018-10-29] MEDS: LEVOFLOXACIN 750 MG/D5W RTU 750 MG/150 ML RTUPB IV SCH (18:45)
[2018-10-29] MEDS ORDERED: MAG HYDROX/AL HYDROX/SIMETH SUSP 30 ML UDCUP PO PRN (20:11)
[2018-10-29] MEDS ORDERED: MAGNESIUM HYDROXIDE SUSP 30 ML UDCUP PO PRN (20:13)
[2018-10-29] MEDS ORDERED: BISACODYL 10 MG SUPP.RECT PR PRN (20:13)
[2018-10-30] MEDS: IPRATROPIUM/ALBUTEROL 0.5-2.5 MG/3 ML AMPUL NEB SCH ×4 (02:20→20:50)
[2018-10-30] MEDS: ENOXAPARIN SODIUM INJ 40 MG/0.4 ML DISP.SYRIN SUBCUT SCH (10:03)
[2018-10-30] MEDS: PREDNISONE 20 MG TABLET PO SCH (10:05)
[2018-10-30] MEDS: GUAIFENESIN 600 MG TABLET.SA PO SCH ×2 (10:05→21:44)
[2018-10-30] MEDS: DOCUSATE SODIUM 100 MG CAPSULE PO SCH ×2 (10:05→18:47)
[2018-10-30] MEDS: GUAIFENESIN SYRP 200 MG/10 ML UDC PO PRN (10:52)
--- NOTE | 2018-10-30 11:04 | RADIOLOGY REPORT (SQ) ---
EXAM DESCRIPTION: PARANASAL SINUSES COMPLETED DATE/TIME: 10/30/2018 8:59 am REASON FOR STUDY: cough-post nasal drip COMPARISON: Chest films 10/27/2018 CT chest 10/29/2018 NUMBER OF VIEWS: Four views. TECHNIQUE: Images of the paranasal sinuses acquired. LIMITATIONS: None. FINDINGS: ORBITS: No fracture. No foreign body. SINUSES: No mucosal thickening. No air fluid levels. FACIAL BONES: No fracture. OTHER: No other significant finding. IMPRESSION: NO FOREIGN BODY OR FRACTURE. NO PLAIN RADIOGRAPHIC EVIDENCE FOR SINUS DISEASE. TECHNICAL DOCUMENTATION: JOB ID: [id number] [employer]- All Rights Reserved Reading location - IP/workstation name: [email or web address]
--- NOTE | 2018-10-30 13:56 | RADIOLOGY REPORT (SQ) ---
EXAM DESCRIPTION: BARIUM SWALLOW ESOPHAGUS COMPLETED DATE/TIME: 10/30/2018 9:07 am REASON FOR STUDY: coughing COMPARISON: CT chest 11/06/2018 Two-view chest 10/27/2018 TECHNIQUE: Under fluoroscopic guidance, patient ingested effervescent granules followed by thick and thin barium. Fluoroscopic spot images and routine radiographic images acquired and stored on PACS. 12 MM BARIUM TABLET GIVEN: Yes. No significant delay in passage. LIMITATIONS: None. FLUOROSCOPY TIME: FLUORO TIME: 90 seconds 8 series of digital images saved to PACS. FINDINGS: NEUROMUSCULAR COORDINATION OF SWALLOW: Normal. No aspiration. ESOPHAGEAL MOTILITY: Normal peristalsis. No esophageal spasm. ESOPHAGEAL MUCOSA: Normal mucosa without masses or ulceration. GASTRO-ESOPHAGEAL JUNCTION: No hiatal hernia. Unprovoked gastroesophageal reflux to the cervical eso phagus. NON-GI TRACT STRUCTURES: No significant finding. OTHER: No other significant finding. IMPRESSION: No hiatal hernia or esophageal stricture Unprovoked gastroesophageal reflux to the cervical esophagus COMMENT: Quality ID [id number]: Final reports for procedures using fluoroscopy that document radiation exp osure indices, or exposure time and number of fluorographic images (if radiation exposure indices are not available) TECHNICAL DOCUMENTATION: JOB ID: [id number] [employer]- All Rights Reserved Reading location - IP/workstation name: [email or web address]
[2018-10-30] MEDS: AZITHROMYCIN 500 MG in DEXTROSE 5%-WATER 250 ML IV SCH (14:57)
--- NOTE | 2018-10-30 18:24 | PDOC PROGRESS REPORT ---
Subjective Progress Note for:: 10/30/18 Subjective:: No adverse events overnight. No new complaints. He still having a hard heavy cough. It is nonproductive. No fevers. He says he feels like he has congested sinuses. He is able to ambulate in the room without too much trouble. He says that he had bad allergies where he used to live in [place] became more at the same time every year and he knew he was allergic to ragweed. He says that the symptoms he feels like he is having now are exactly the same they just started a different time of the year. He said they moved down here 2 years ago and his symptoms started to flareup like this at this time last year but they just were not as severe. He says he never really took anything for his symptoms except for oral antihistamine from time to time. Reason For Visit: ACUTE HYPOXEMIC RESPIRATORY FAILURE Physical Exam Vital Signs: Temp Pulse Resp BP Pulse Ox 98.0 F 91 20 143/69 H 95 10/30/18 16:00 10/30/18 16:00 10/30/18 16:00 10/30/18 16:00 10/30/18 16:00 Intake & Output 10/29/18 10/30/18 10/31/18 06:59 06:59 06:59 Intake Total 682 2080 250 Balance 682 2080 250 Weight 114 kg 114 kg General appearance: PRESENT: cooperative, mild distress Mouth exam: PRESENT: moist, neck supple Neck exam: ABSENT: full ROM, JVD, lymphadenopathy, tenderness, thyromegaly, tracheal deviation Respiratory exam: PRESENT: Clear to auscultation bilaterally. Absent: Accessory muscle use, wheezes Cardiovascular exam: PRESENT: RRR. ABSENT: gallop, rubs GI/Abdominal exam: PRESENT: normal bowel sounds, soft. ABSENT: ascites, tenderness Extremities exam: ABSENT: pedal edema, tenderness Neurological exam: PRESENT: alert, oriented to person, oriented to place, oriented to time, oriented to situation Psychiatric exam: ABSENT: agitated, anxious Skin exam: PRESENT: dry, normal color, warm Results Laboratory Results: 10/29/18 06:19 10/29/18 06:19 10/27/18 18:40 Blood Blood Culture - Final Staphylococcus Haemolyticus Bacillus Sp. Not Anthracis 10/27/18 10/27/18 10:54 12:00 Troponin I Cancelled < 0.012 NT-Pro-B Natriuret Pep Cancelled 87 Impressions: Chest X-Ray 10/27/18 10:28 IMPRESSION: NO ACUTE RADIOGRAPHIC FINDING IN THE CHEST. Chest CT 10/29/18 00:00 IMPRESSION: 1. No acute or suspicious thoracic abnormality. Lungs are clear. No vascular or mediastinal abnormality detected. Esophagus X-Ray 10/30/18 00:00 IMPRESSION: No hiatal hernia or esophageal stricture Unprovoked gastroesophageal reflux to the cervical esophagus Sinuses X-Ray 10/30/18 00:00 IMPRESSION: NO FOREIGN BODY OR FRACTURE. NO PLAIN RADIOGRAPHIC EVIDENCE FOR SINUS DISEASE. Assessment and Plan - Diagnosis (1) Acute bronchitis with bronchospasm Is this a current diagnosis for this admission?: Yes Plan: He is on some prednisone, but unfortunately this is probably just going to have to run its course. I have ordered him some cough syrup to help him sleep be cause he said he has not really slept in 2 days. (2) Cough present for greater than 3 weeks Is this a current diagnosis for this admission?: Yes Plan: Dr. Chirinos has been consulted and has ordered an extensive workup. His mono te st was negative. Bordetella workup is pending. The description certainly sounds like a severe seasonal allergic reaction. He is on some prednisone and it should help with that some, but the prolonged airway inflammation for the cough going on for over 3 weeks is going to take some time to resolve. I have also ordered some Zyrtec. I have recommended that once he gets out of the hospital that he follow-up with an data systems analyst. - Time Time Spent with patient: 25-34 minutes
[2018-10-30] MEDS: LEVOFLOXACIN 750 MG/D5W RTU 750 MG/150 ML RTUPB IV SCH (18:47)
[2018-10-30] MEDS ORDERED: HYDROCODONE BIT/HOMATROPINE SYRUP 5 ML UDCUP PO SCH (22:00)
[2018-10-31] MEDS: IPRATROPIUM/ALBUTEROL 0.5-2.5 MG/3 ML AMPUL NEB SCH ×4 (01:55→20:34)
[2018-10-31] MEDS: PANTOPRAZOLE SODIUM 40 MG TABLET.DR PO SCH ×2 (07:35→17:19)
[2018-10-31] MEDS: ENOXAPARIN SODIUM INJ 40 MG/0.4 ML DISP.SYRIN SUBCUT SCH (09:28)
[2018-10-31] MEDS: DOCUSATE SODIUM 100 MG CAPSULE PO SCH ×2 (09:28→17:19)
[2018-10-31] MEDS: GUAIFENESIN 600 MG TABLET.SA PO SCH ×2 (09:28→22:35)
[2018-10-31] MEDS: PREDNISONE 20 MG TABLET PO SCH (09:28)
[2018-10-31] MEDS: GUAIFENESIN/CODEINE PHOS 100-10 MG/ 5 ML UDC PO PRN ×2 (09:29→22:39)
[2018-10-31] MEDS: LEVOFLOXACIN 750 MG/D5W RTU 750 MG/150 ML RTUPB IV SCH (17:19)
--- NOTE | 2018-10-31 18:21 | PDOC PROGRESS REPORT ---
Subjective Progress Note for:: 10/31/18 Subjective:: No adverse events overnight. No new complaints. He still having a cough but is not as severe as it was. He said he feels like some of the congestion in his chest is breaking up because his cough is little bit more productive. He is able to ambulate around the hallways off oxygen. Reason For Visit: ACUTE HYPOXEMIC RESPIRATORY FAILURE Physical Exam Vital Signs: Temp Pulse Resp BP Pulse Ox 97.7 F 100 21 H 120/78 93 10/31/18 16:00 10/31/18 16:00 10/31/18 16:00 10/31/18 16:00 10/31/18 16:00 Intake & Output 10/30/18 10/31/18 11/01/18 06:59 06:59 06:59 Intake Total 2080 2440 1380 Balance 2080 2440 1380 Weight 114 kg 114 kg General appearance: PRESENT: cooperative, mild distress Mouth exam: PRESENT: moist, neck supple Neck exam: ABSENT: full ROM, JVD, lymphadenopathy, tenderness, thyromegaly, tracheal deviation Respiratory exam: PRESENT: Clear to auscultation bilaterally. Absent: Accessory muscle use, wheezes Cardiovascular exam: PRESENT: RRR. ABSENT: gallop, rubs GI/Abdominal exam: PRESENT: normal bowel sounds, soft. ABSENT: ascites, tenderness Extremities exam: ABSENT: pedal edema, tenderness Neurological exam: PRESENT: alert, oriented to person, oriented to place, oriented to time, oriented to situation Psychiatric exam: ABSENT: agitated, anxious Skin exam: PRESENT: dry, normal color, warm Results Laboratory Results: 10/29/18 06:19 10/29/18 06:19 10/27/18 10/27/18 10:54 12:00 Troponin I Cancelled < 0.012 NT-Pro-B Natriuret Pep Cancelled 87 Impressions: Chest X-Ray 10/27/18 10:28 IMPRESSION: NO ACUTE RADIOGRAPHIC FINDING IN THE CHEST. Chest CT 10/29/18 00:00 IMPRESSION: 1. No acute or suspicious thoracic abnormality. Lungs are clear. No vascular or mediastinal abnormality detected. Esophagus X-Ray 10/30/18 00:00 IMPRESSION: No hiatal hernia or esophageal stricture Unprovoked gastroesophageal reflux to the cervical esophagus Sinuses X-Ray 10/30/18 00:00 IMPRESSION: NO FOREIGN BODY OR FRACTURE. NO PLAIN RADIOGRAPHIC EVIDENCE FOR SINUS DISEASE. Assessment and Plan - Diagnosis (1) Acute bronchitis with bronchospasm Is this a current diagnosis for this admission?: Yes Plan: He is on some prednisone, but unfortunately this is probably just going to have to run its course. I have ordered him some cough syrup to help him sleep and he said he was able to get a few hours of sleep last night. He also had a barium esophagram which showed some unprovoked reflux and so we started him on some Protonix. (2) Cough present for greater than 3 weeks Is this a current diagnosis for this admission?: Yes Plan: Dr. Chirinos has been consulted and has ordered an extensive workup. His mono test was negative. Bordetella workup is pending. The description certainly sounds like a severe seasonal allergic reaction. He is on some prednisone and it should help with that some, but the prolonged airway inflammation for the cough going on for over 3 weeks is going to take some time to resolve. I have also ordered some Zyrtec. I have recommended that once he gets out of the hospital that he follow-up with an children teacher. As noted above, will start him on a PPI for detection of unprovoked reflux on barium esophagram. If his condition is unchanged tomorrow, we can probably discharge him home at that time. - Time Time Spent with patient: 25-34 minutes
[2018-10-31] MEDS ORDERED: CETIRIZINE 10 MG TABLET PO SCH (22:00)
[2018-11-01] MEDS: IPRATROPIUM/ALBUTEROL 0.5-2.5 MG/3 ML AMPUL NEB SCH ×2 (02:32→08:04)
[2018-11-01] MEDS: PANTOPRAZOLE SODIUM 40 MG TABLET.DR PO SCH (06:11)
[2018-11-01] MEDS: ENOXAPARIN SODIUM INJ 40 MG/0.4 ML DISP.SYRIN SUBCUT SCH (10:48)
[2018-11-01] MEDS: PREDNISONE 20 MG TABLET PO SCH (10:48)
[2018-11-01] MEDS: GUAIFENESIN 600 MG TABLET.SA PO SCH (10:48)
[2018-11-01] MEDS: DOCUSATE SODIUM 100 MG CAPSULE PO SCH (10:48)
[2018-11-01 12:44] VITALS: BP 120/78
[2018-11-01 12:47] LABS: BORDETELLA PERTUSSIS IGA AB 1.1 index (0.0-0.9)
--- NOTE | 2018-11-01 16:01 | PDOC DISCHARGE SUMMARY ---
General - Admit/Disc Date/PCP Admission Date/Primary Care Provider: 10/27/18 16:12 THELMA NUNEZ-Sher Discharge Date: 11/01/18 - Discharge Diagnosis (1) Acute bronchitis with bronchospasm Is this a current diagnosis for this admission?: Yes Summary: We put him on some steroids and some antibiotics, but this is probably just going to have to run its course. He does have pretty severe seasonal allergies, and I recommended that he follow-up with an pool manager. His called his insurance company and found 1 locally that is in his network and she is going to set up an appointment for for the patient. (2) Cough present for greater than 3 weeks Is this a current diagnosis for this admission?: Yes Summary: Pulmonology was consulted and workup thus far has been negative. He did have evidence on a barium esophagram of some unprovoked reflux, but if he is having a substantial seasonal allergic response, his histamine levels are going to be elevated and that could increase the production of the stomach acid. I recommended that he take a H2 juan m. Also recommended that he continue to take his seasonal allergy medication whenever he gets home. I recommended that he get in with pool manager as previously noted. - Additional Information Resuscitation Status: Full Code Discharge Diet: Regular Discharge Activity: Activity As Tolerated Prescriptions: Guaifenesin/Codeine Phos [Robitussin-AC Liquid 5 ml Udcup] 5 ml PO Q4HP PRN #120 ml PRN Reason: Prednisone [Deltasone 20 mg Tablet] 40 mg PO DAILY #10 tablet Home Medications: Guaifenesin/Codeine Phos [Robitussin-AC Liquid 5 ml Udcup] 5 ml PO Q4HP PRN #120 ml 11/01/18 Prednisone [Deltasone 20 mg Tablet] 40 mg PO DAILY #10 tablet 11/01/18 History of Present Illness History of Present Illness: ZELALEM BLISS is a 68 year old male with no significant medical history and is not on any medication presented with chief complaint of cough and shortness of breath. Patient reports he has been in his usual baseline state of health up until 3 weeks when he started to have cough productive of whitish sputum associated with shortness of breath and wheezing. For the above-mentioned complaints patient visited urgent care where he was given albuterol inhaler, prednisone and Tessalon Perles to no avail. His blood work and chest x-ray are unremarkable. 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 He denies any fever, chills, chest pain, palpitation, diaphoresis, nausea, vomiting, abdominal pain, diarrhea or urinary complaints. Hospital Course Hospital Course: He was put on some steroids and some antibiotics and has had minimal symptom relief. He said that whenever he was in [facility], he had seasonal allergies that came on for him every year, and they would hit them about the same time every year more fairly severe. He said he moved down here last year and began to experience his allergy symptoms around this time of year last year. He had the same symptoms for the past several weeks and it had a cough. The cough is been his main complaint. Is not been very productive. We started him on an antihistamine, gave him an H2 juan m, and some cough syrup to help with the symptoms. Pulmonology was consulted and their workup thus far has been negative. It is possible that this is just a bronchitis that she is going to take, run its course, but given his history is also possible that he is having his symptoms as a result of fairly severe seasonal allergies. I recommended that he consult with an pool manager and rehab manager. His is found someone in the network and is planning on getting him a follow-up. His labs and examination were reassuring he was discharged in good condition. Physical Exam Vital Signs: Temp Pulse Resp BP Pulse Ox 97.9 F 87 20 120/78 90 L 11/01/18 12:43 11/01/18 12:43 11/01/18 12:43 11/01/18 12:43 11/01/18 12:43 Intake & Output 10/31/18 11/01/18 11/02/18 06:59 06:59 06:59 Intake Total 2439 2029 Balance 2442029 Weight 114 kg General appearance: PRESENT: cooperative, mild distress Mouth exam: PRESENT: moist, neck supple Neck exam: ABSENT: full ROM, JVD, lymphadenopathy, tenderness, thyromegaly, tracheal deviation Respiratory exam: PRESENT: Clear to auscultation bilaterally. Absent: Accessory muscle use, wheezes Cardiovascular exam: PRESENT: RRR. ABSENT: gallop, rubs GI/Abdominal exam: PRESENT: normal bowel sounds, soft. ABSENT: ascites, tenderness Extremities exam: ABSENT: pedal edema, tenderness Neurological exam: PRESENT: alert, oriented to person, oriented to place, oriented to time, oriented to situation Psychiatric exam: ABSENT: agitated, anxious Skin exam: PRESENT: dry, normal color, warm Results Laboratory Results: 10/29/18 06:19 10/29/18 06:19 10/27/18 10/27/18 10:54 12:00 Troponin I Cancelled < 0.012 NT-Pro-B Natriuret Pep Cancelled 87 Impressions: Chest X-Ray 10/27/18 10:28 IMPRESSION: NO ACUTE RADIOGRAPHIC FINDING IN THE CHEST. Chest CT 10/29/18 00:00 IMPRESSION: 1. No acute or suspicious thoracic abnormality. Lungs are clear. No vascular or mediastinal abnormality detected. Esophagus X-Ray 10/30/18 00:00 IMPRESSION: No hiatal hernia or esophageal stricture Unprovoked gastroesophageal reflux to the cervical esophagus Sinuses X-Ray 10/30/18 00:00 IMPRESSION: NO FOREIGN BODY OR FRACTURE. NO PLAIN RADIOGRAPHIC EVIDENCE FOR SINUS DISEASE. Qualifiers - * PATIENT BEING DISCHARGED WITH ANY OF THE FOLLOWING DIAGNOSIS: No
--- NOTE | 2018-11-04 13:21 | PDOC PROGRESS REPORT ---
Subjective Progress Note for:: 10/30/18 Subjective:: Continued paroxysms of coughing Reason For Visit: ACUTE HYPOXEMIC RESPIRATORY FAILURE Physical Exam Vital Signs: Temp Pulse Resp BP Pulse Ox 98.2 F 95 21 H 147/88 H 96 10/30/18 08:00 10/30/18 08:00 10/30/18 08:00 10/30/18 08:00 10/30/18 08:00 Intake & Output 10/29/18 10/30/18 10/31/18 06:59 06:59 06:59 Intake Total 682 2080 Balance 682 0 Weight 114 kg 114 kg General appearance: PRESENT: cooperative, disheveled, mild distress, obese Head exam: PRESENT: atraumatic, normocephalic Eye exam: PRESENT: conjunctiva pale, EOMI. ABSENT: nystagmus, periorbital swelling Mouth exam: PRESENT: dry mucosa, neck supple, tongue midline Neck exam: ABSENT: carotid bruit, full ROM, JVD, lymphadenopathy, meningismus, tenderness, thyromegaly, tracheal deviation, tracheostomy, other Respiratory exam: PRESENT: decreased breath sounds, prolonged expiratory phas, rhonchi, unlabored. ABSENT: rales, retraction, stridor Cardiovascular exam: PRESENT: RRR, +S1, +S2 Pulses: PRESENT: normal radial pulses GI/Abdominal exam: PRESENT: soft, tenderness - Left upper quadrant Extremities exam: ABSENT: calf tenderness, clubbing, joint swelling Neurological exam: PRESENT: alert, awake Psychiatric exam: PRESENT: appropriate affect Skin exam: PRESENT: dry, warm Results Laboratory Results: 10/29/18 06:19 10/29/18 06:19 10/27/18 10/27/18 10:54 12:00 Troponin I Cancelled < 0.012 NT-Pro-B Natriuret Pep Cancelled 87 Impressions: Chest X-Ray 10/27/18 10:28 IMPRESSION: NO ACUTE RADIOGRAPHIC FINDING IN THE CHEST. Chest CT 10/29/18 00:00 IMPRESSION: 1. No acute or suspicious thoracic abnormality. Lungs are clear. No vascular or mediastinal abnormality detected. Assessment & Plan - Diagnosis (1) Cough present for greater than 3 weeks Is this a current diagnosis for this admission?: Yes Plan: Chronic sinusitis, GERD, Bordetella pertussis or a combination of any of these (2) Hypoxemia Is this a current diagnosis for this admission?: Yes Plan: Etiology not completely certain this radiograph does not explain AA gradient
[2018-11-05 12:38] LABS: M001-IGE PENICILLIUM CHRYSOGEN <0.10 kU/L (Class 0); M002-IGE CLADOSPORIUM HERBARUM <0.10 kU/L (Class 0); M003-IGE ASPERGILLUS FUMIGATUS <0.10 kU/L (Class 0); M004-IGE MUCOR RACEMOSUS <0.10 kU/L (Class 0); M005-IGE CANDIDA ALBICANS <0.10 kU/L (Class 0); M006-IGE ALTERNARIA ALTERNATA <0.10 kU/L (Class 0); M009-IGE FUSARIUM PROLIFERATUM <0.10 kU/L (Class 0); M012-IGE AUREOBASIDI PULLULANS <0.10 kU/L (Class 0); M013-IGE PHOMA BETAE <0.10 kU/L (Class 0); M014-IGE EPICOCCUM PURPURASCEN <0.10 kU/L (Class 0)
[2018-11-05 12:50] LABS: M010-IGE STEMPHYLIUM HERBARUM <0.10 kU/L (Class 0)
== END 2018-11-01 13:55 | disposition home or self-care (01) | DRG 203 ==
LOC: ER 10:12 → EH 16:12 → 4S 19:58
PROVIDERS: ADMIT Internal Medicine; ATTEND Internal Medicine
PROC: 3E0F73Z Introduction of Anti-inflammatory into Respiratory Tract, Via Natural or Artificial Opening (ICD-10-PCS; principal; 2018-10-27)
DX: J20.9 Acute bronchitis, unspecified (principal); J30.2 Other seasonal allergic rhinitis; K21.9 Gastro-esophageal reflux disease without esophagitis; R09.02 Hypoxemia; Z90.49 Acquired absence of other specified parts of digestive tract; Z57.9 Occupational exposure to unspecified risk factor
CPT/HCPCS: 36415; 70220; 71046; 71260; 74220; 80053; 80061; 82803; 83880; 84484; 85025; 86003; 86308; 86615; 87040; 87077; 87186; 93005; 93010; 94667; 99285; J0456; J1885; J1956; J2920; J3490; J7060; J7512; J7620